=== PATIENT | female | born 1995 | race Caucasian/White ===

== ENCOUNTER 2016-11-01 19:05 | Emergency (ER) | payer BC ==
[~2016-11-01] VITALS: Ht 165.1 cm; Wt 88.4 kg
[2016-11-01 19:28] VITALS: Ht 165.1 cm; Wt 88.4 kg
[2016-11-01] MEDS ORDERED: ACETAMINOPHEN 500 MG TAB PO ONE (19:31)
[2016-11-01] MEDS ORDERED: KETOROLAC TROMETHAMINE 30 MG/ML VIAL IV STA (20:27)
[2016-11-01] MEDS ORDERED: SODIUM CHLORIDE 0.9% 1000ML 2,000 ML IV STA (20:27)
[2016-11-01] MEDS ORDERED: BCPILLS PO (20:30)
[2016-11-01 20:44] VITALS: TEMP 37.1
[2016-11-01] MEDS ORDERED: OPTIRAY 320 IV PRN (20:45)
[2016-11-01 20:46] LABS: BASO % 0.3 %; BASO ABS # 0.04 K/uL (0-0.2); COMPLETE YES; EOS % 0.9 %; HEMATOCRIT 40.5 % (37-47); IG% 0.3 %; LYMPH % 14.8 %; LYMPH ABS # 1.75 K/uL (1.2-3.4); MEAN CELL VOLUME 82.2 fL (80-100); MEAN CORPUSCULAR HGB CONC 34.1 g/dl (32-36); MEAN PLATELET VOLUME 9.1 fL (7.4-10.4); MONO % 7.7 %; PLATELET COUNT 281 K/uL (130-400); RED BLOOD COUNT 4.93 M/uL (4.2-5.4); WHITE BLOOD COUNT 11.82 K/uL (4.8-10.8)
[2016-11-01 21:04] LABS: URINE APPEARANCE CLEAR (CLEAR); URINE BILIRUBIN NEG (NEG); URINE COLOR YELLOW; URINE NITRITE NEG (NEG); URINE SPECIFIC GRAVITY 1.019 (1.000-1.030); UROBILINOGEN NEG (NEG); ZZUR CULT IF INDIC CLEAN CATCH NO
[2016-11-01 21:09] LABS: ALT/SGPT 15 U/L (12-78); AST/SGOT 17 U/L (15-37); BLOOD UREA NITROGEN 8 mg/dl (7-18); CALCIUM 8.5 mg/dl (8.5-10.1); CARBON DIOXIDE 25 mmol/L (21-32); CHLORIDE 105 mmol/L (98-107); CREATININE 0.84 mg/dl (0.60-1.20); GLUCOSE 91 mg/dl (70-99); POTASSIUM 3.6 mmol/L (3.5-5.1); SODIUM 140 mmol/L (136-145)
[2016-11-01 21:11] LABS: MANUAL MICROSCOPIC REQUIRED? NO; REVIEW REQ? NO
[2016-11-01 21:12] LABS: ISTAT CREATININE 0.8 mg/dl; ISTAT HEMOGLOBIN 13.3 g/dl (12.0-16.0); ISTAT IONIZED CALCIUM 0.99 mmol/l
[2016-11-01 21:12] LABS: ALKALINE PHOSPHATASE 145 U/L (45-117)
--- NOTE | 2016-11-01 21:18 | DIAGNOSTIC IMAGING REPORT ---
CT ABD/PELVIS IV CONTRAST ONLY CLINICAL HISTORY: Left lower flank pain COMPARISON STUDY: None. TECHNIQUE: Following the IV administration of 117 mL of Optiray-320, CT scan of the abdomen and pelvis was performed from the lung bases to the proximal femurs. Images are reviewed in the axial, sagittal, and coronal planes. IV contrast was administered without complication. CT DOSE: 548.96 mGy.cm FINDINGS: Lower chest: There is an airspace opacity within the right middle lobe, suspicious for a pneumonia. Clinical and imaging follow-up is recommended Liver: The contrast-enhanced liver is normal in size, contour, and attenuation. There is no intrahepatic biliary ductal dilatation. The hepatic veins and portal veins are patent. Gallbladder: Unremarkable. Spleen: Normal in size and attenuation. Pancreas: Unremarkable. Adrenal glands: Unremarkable. Kidneys: There is symmetric renal cortical enhancement. The kidneys are normal in size without hydronephrosis. Bowel: There are no transition zones indicate bowel obstruction. There are no findings to indicate acute diverticulitis. The appendix appears normal. Peritoneum: There is no free air. There is trace free pelvic fluid likely physiologic Vasculature: The abdominal aorta is normal in course and caliber. Adenopathy: There are prominent right-sided ileocolic lymph nodes, likely reactive. Pelvic viscera: The bladder, and pelvic viscera are unremarkable. Skeletal structures: There is bilateral L5 spondylolysis. There is a grade 1 spondylolisthesis of L5 on S1. IMPRESSION: 1. No evidence of bowel obstruction. No evidence of free air 2. Normal appendix 3. No evidence of acute diverticulitis 4. Right middle lobe airspace opacities. In a patient of this age, this likely represents a pneumonia. Clinical and imaging follow-up is recommended. Electronically signed by: Ricco Almaraz M.D. 11/01/2016 9:17 PM Dictated Date/Time: 11/01/2016 9:13 PM
--- NOTE | 2016-11-01 21:32 | DIAGNOSTIC IMAGING REPORT ---
CHEST 2 VIEWS ROUTINE CLINICAL HISTORY: cough and fever COMPARISON STUDY: No previous studies for comparison. FINDINGS: There are right middle lobe airspace opacities suspicious for a pneumonia. The heart is normal in size. There is no failure. There are no pleural effusions.[ IMPRESSION: Right middle lobe airspace opacities consistent with pneumonia. Films subsequent to treatment are recommended in follow-up. Electronically signed by: Ricco Almaraz M.D. 11/01/2016 9:30 PM Dictated Date/Time: 11/01/2016 9:30 PM
[2016-11-01] MEDS ORDERED: DOXYCYCLINE HYCLATE 100 MG CAP PO ONE (21:45)
[2016-11-01 23:05] VITALS: BP 146/84; PULSE 96; O2SAT 98
[2016-11-01] MEDS ORDERED: DOXY100C PO (23:11)
--- NOTE | 2016-11-01 23:40 | EMERGENCY ROOM VISIT NOTE ---
History Report prepared by Moriah: Daisy Monroy Under the Supervision of: Dr. Eulalio Almeida D.O. First contact with patient: 20:18 Chief Complaint: FLANK PAIN Stated Complaint: BACK PAIN, FEVER- [facility] REFERRED History of Present Illness The patient is a 21 year old female who presents to the Emergency Room with complaints of a constant illness beginning yesterday. The patient states that she started having headaches 1 week ago that are slightly worse than a normal headache but are better than her typical migraine. She reports that she started having chills 2 nights ago and yesterday she developed back pain, lower neck pain, abdominal pain, nausea, green productive cough, runny nose, and a fever. She notes that the back pain is on both sides and feels hot. The patient reports that her abdominal pain feels like period cramping and her muscles are sore. She states that she is supposed to get her period in 2 weeks. She denies any nausea, vomiting, chest pain, urinary symptoms, vaginal discharge, vaginal bleeding, and diarrhea. She notes that she still has her gallbladder and appendix and does a lot of heavy lifting at work. The patient states that nothing makes her pain better or worse. She notes the fevers did start within the past 24 hours when a cough and runny nose have been worsening. Source of History: patient Onset: yesterday Position: back Quality: other (hot) Timing: constant Modifying Factors (Worsening): other (none) Modifying Factors (Relieving): other (none) Associated Symptoms: + abdominal pain, + back pain, + chills, + cough, + fevers, + nausea, + neck pain, No chest pain, No diarrhea, No urinary symptoms, No vomiting Note: She denies any vaginal discharge, vaginal bleeding. Review of Systems See HPI for pertinent positives & negatives. A total of 10 systems reviewed and were otherwise negative. Past Medical & Surgical Medical Problems: (1) No Known Active Medical Problems Family History No pertinent family history stated. Social History Smoking Status: Never Smoker Marital Status: single Housing Status: lives with roommate Occupation Status: student, [employer] student Current/Historical Medications Scheduled Control Pills ( Control Pills), 1 TAB PO DAILY Doxycycline Hyclate (Vibramycin), 100 MG PO BID Allergies Coded Allergies: No Known Allergies (Unverified , 11/01/16) Physical Exam Vital Signs Date Time Temp Pulse Resp B/P Pulse Ox O2 Delivery O2 Flow Rate FiO2 11/01/16 23:05 96 18 146/84 98 Room Air 11/01/16 22:50 93 18 163/86 95 Room Air 11/01/16 21:39 102 21 156/97 97 Room Air 11/01/16 20:46 101 11/01/16 20:44 37.1 113 19 143/111 99 Room Air 11/01/16 19:28 37.9 121 20 175/114 96 Room Air Physical Exam GENERAL: alert, sitting up in bed, well appearing, well nourished, no distress, non-toxic EYE EXAM: normal conjunctiva, PERRL and EOM's grossly intact OROPHARYNX: no exudate, no erythema, lips, buccal mucosa, and tongue normal and mucous membranes are moist, faint posterior tonsillar exudates NECK: supple, no nuchal rigidity, no adenopathy, non-tender, negative Brudzinski EARS: TMs clear bilaterally LUNGS: Clear to auscultation. Normal chest wall mechanics HEART: no murmurs, S1 normal and S2 normal ABDOMEN: abdomen soft, non-tender, normo-active bowel sounds, no masses, no rebound or guarding. BACK: Back is symmetrical on inspection and there is no deformity. Acute reproducible lower lumbar paraspinal tenderness tracking into bilateral gluteus SKIN: no rashes and no bruising UPPER EXTREMITIES: upper extremities are grossly normal. LOWER EXTREMITIES: No pitting edema. NEURO EXAM: Normal sensorium, cranial nerves II-XII grossly intact, normal speech, no gross weakness of arms, no gross weakness of legs. Medical Decision & Procedures ER Provider Diagnostic Interpretation: Radiology results as stated below per my review and the radiologist's interpretation: CHEST 2 VIEWS ROUTINE FINDINGS: There are right middle lobe airspace opacities suspicious for a pneumonia. The heart is normal in size. There is no failure. There are no pleural effusions.[ IMPRESSION: Right middle lobe airspace opacities consistent with pneumonia. Films subsequent to treatment are recommended in follow-up. Electronically signed by: Ricco Almaraz M.D. 11/01/2016 9:30 PM Dictated Date/Time: 11/01/2016 9:[address] ABD/PELVIS IV CONTRAST ONLY FINDINGS: Lower chest: There is an airspace opacity within the right middle lobe, suspicious for a pneumonia. Clinical and imaging follow-up is recommended Liver: The contrast-enhanced liver is normal in size, contour, and attenuation. There is no intrahepatic biliary ductal dilatation. The hepatic veins and portal veins are patent. Gallbladder: Unremarkable. Spleen: Normal in size and attenuation. Pancreas: Unremarkable. Adrenal glands: Unremarkable. Kidneys: There is symmetric renal cortical enhancement. The kidneys are normal in size without hydronephrosis. Bowel: There are no transition zones indicate bowel obstruction. There are no findings to indicate acute diverticulitis. The appendix appears normal. Peritoneum: There is no free air. There is trace free pelvic fluid likely physiologic Vasculature: The abdominal aorta is normal in course and caliber. Adenopathy: There are prominent right-sided ileocolic lymph nodes, likely reactive. Pelvic viscera: The bladder, and pelvic viscera are unremarkable. Skeletal structures: There is bilateral L5 spondylolysis. There is a grade 1 spondylolisthesis of L5 on S1. IMPRESSION: 1. No evidence of bowel obstruction. No evidence of free air 2. Normal appendix 3. No evidence of acute diverticulitis 4. Right middle lobe airspace opacities. In a patient of this age, this likely represents a pneumonia. Clinical and imaging follow-up is recommended. Electronically signed by: Ricco Almaraz M.D. 11/01/2016 9:17 PM Dictated Date/Time: 11/01/2016 9:13 PM Laboratory Results 11/01/16 20:30 Red Blood Count 4.93, Mean Corpuscular Volume 82.2, Mean Corpuscular Hemoglobin 28.0, Mean Corpuscular Hemoglobin Concent 34.1, Mean Platelet Volume 9.1, Neutrophils (%) (Auto) 76.0, Lymphocytes (%) (Auto) 14.8, Monocytes (%) (Auto) 7.7, Eosinophils (%) (Auto) 0.9, Basophils (%) (Auto) 0.3, Neutrophils # (Auto) 8.97, Lymphocytes # (Auto) 1.75, Monocytes # (Auto) 0.91, Eosinophils # (Auto) 0.11, Basophils # (Auto) 0.04 11/01/16 20:30 Test 11/01/16 20:30 11/01/16 20:35 11/01/16 20:40 11/01/16 20:59 White Blood Count 11.82 K/uL (4.8-10.8) Red Blood Count 4.93 M/uL (4.2-5.4) Hemoglobin 13.8 g/dL (12.0-16.0) Hematocrit 40.5 % (37-47) Mean Corpuscular Volume 82.2 fL (80-100) Mean Corpuscular Hemoglobin 28.0 pg (25-34) Mean Corpuscular Hemoglobin Concent 34.1 g/dl (32-36) Platelet Count 281 K/uL (130-400) Mean Platelet Volume 9.1 fL (7.4-10.4) Neutrophils (%) (Auto) 76.0 % Lymphocytes (%) (Auto) 14.8 % Monocytes (%) (Auto) 7.7 % Eosinophils (%) (Auto) 0.9 % Basophils (%) (Auto) 0.3 % Neutrophils # (Auto) 8.97 K/uL (1.4-6.5) Lymphocytes # (Auto) 1.75 K/uL (1.2-3.4) Monocytes # (Auto) 0.91 K/uL (0.11-0.59) Eosinophils # (Auto) 0.11 K/uL (0-0.5) Basophils # (Auto) 0.04 K/uL (0-0.2) RDW Standard Deviation 37.7 fL (36.4-46.3) RDW Coefficient of Variation 12.5 % (11.5-14.5) Immature Granulocyte % (Auto) 0.3 % Immature Granulocyte # (Auto) 0.04 K/uL (0.00-0.02) Est Creatinine Clear Calc Drug Dose 117.3 ml/min Estimated GFR () 116.0 Estimated GFR (Non- 100.1 BUN/Creatinine Ratio 9.0 (10-20) Calcium Level 8.5 mg/dl (8.5-10.1) Total Bilirubin 0.3 mg/dl (0.2-1) Direct Bilirubin < 0.1 mg/dl (0-0.2) Aspartate Amino Transf (AST/SGOT) 17 U/L (15-37) Alanine Aminotransferase (ALT/SGPT) 15 U/L (12-78) Alkaline Phosphatase 145 U/L (45-117) Total Protein 8.0 gm/dl (6.4-8.2) Albumin 3.5 gm/dl (3.4-5.0) Lipase 98 U/L (73-393) Influenza Type A Antigen Neg for Influ A (NEG) Influenza Type B Antigen Neg for Influ B (NEG) Urine Color YELLOW Urine Appearance CLEAR (CLEAR) Urine pH 6.0 (4.5-7.5) Urine Specific [place] 1.019 (1.000-1.030) Urine Protein NEG (NEG) Urine Glucose (UA) NEG (NEG) Urine Ketones NEG (NEG) Urine Occult Blood NEG (NEG) Urine Nitrite NEG (NEG) Urine Bilirubin NEG (NEG) Urine Urobilinogen NEG (NEG) Urine Leukocyte Esterase NEG (NEG) Urine WBC (Auto) 1-5 /hpf (0-5) Urine RBC (Auto) 0-4 /hpf (0-4) Urine Hyaline Casts (Auto) 1-5 /lpf (0-5) Urine Epithelial Cells (Auto) 10-20 /lpf (0-5) Urine Bacteria (Auto) NEG (NEG) Urine Test NEG (NEG) Bedside Hemoglobin 13.3 g/dl (12.0-16.0) Bedside Hematocrit 39 % (37-47) Bedside Sodium 137 mEq/L (135-144) Bedside Potassium 3.3 mEq/L (3.3-5.0) Bedside Chloride 103 mEq/L (101-112) Bedside Total CO2 19 mEq/l (24-31) Anion Gap 20.0 mmol/L (16-25) Bedside Blood Urea Nitrogen 7 mg/dl (7-18) Bedside Creatinine 0.8 mg/dl Bedside Glucose (other) 93 mg/dl (70-99) Bedside Ionized Calcium (Yanely) 0.99 mmol/l Laboratory results per my review. Medications Administered Medications (Trade) Dose Ordered Sig/Chase Route Start Time Stop Time Status Last Admin Dose Admin Acetaminophen 1000 mg 1,000 mg STK-MED ONCE PO 11/01/16 19:31 11/01/16 19:32 DC 11/01/16 19:31 1,000 MG Sodium Chloride (Nss 1000ml) 2,000 ml @ 999 mls/hr Q2H1M STAT IV 11/01/16 20:27 11/01/16 22:27 DC 11/01/16 20:50 999 MLS/HR Ketorolac Tromethamine (Toradol Inj) 30 mg NOW STAT IV 11/01/16 20:27 11/01/16 20:29 DC 11/01/16 20:52 30 MG Doxycycline Hyclate (Vibramycin Cap) 100 mg ONE ONCE PO 11/01/16 21:45 11/01/16 21:46 DC 11/01/16 22:01 100 MG ED Course ED COURSE: Vital signs were reviewed and showed tachycardia, hypertension and febrile The patients medical record was reviewed The above diagnostic studies were performed and reviewed. ED treatments and interventions as stated above. 1930: Tylenol Tab 1000mg PO. 2017: The patient was evaluated in room A11. A complete history and physical examination was performed. 2026: Toradol Inj 30mg IV, Sodium Chloride 2000 ml @ 999 mls/hr IV. 2144: Vibramycin Cab 100mg PO. 2248: I reevaluated the patient and she is doing well. She is drinking Gatorade. 2314: I reevaluated the patient and updated her. 2331: Upon reevaluation, the patient is doing well.I discussed my findings with the patient and she understands and agrees with the treatment plan. Based on the patients age, coexisting illnesses, exam and lab findings the decision to treat as an outpatient was made. The patient remained stable while under my care. The patient appeared well at the time of discharge. Medical Decision Differential diagnosis includes etiologies such as sepsis, UTI, pneumonia, metabolic, electrolyte abnormalities, cardiac sources, intracerebral event, toxicologic, neurologic, as well as others were entertained. Medication Reconciliation: I attest that I have personally reviewed the patient' s current medication list. Blood pressure screening: Patient was found to have an elevated blood pressure and was referred to their primary doctor for recheck and further treatment. Patient is a 21-year-old female who presents the ER referred in by [facility] for a fever and tachycardia associated with multiple complaints. She notes that she has been having intermittent headaches over the past week. Over the past 24 hours she has been having a cough, runny nose and a sore throat. Fevers started today. She plans of lower back pain which is clearly reproducible on exam. No urinary complaints. UA was negative. was negative. Chest x-ray supports a right middle lobe pneumonia which is also improved turned on CT. CT of the abdomen and pelvis was benign as she is complaining of diffuse abdominal pain. Labs show a mild leukocytosis of 11, 000. BMP along with LFTs, bilirubin and lipase is negative. Patient received Tylenol, Toradol and 2 L normal saline. She is able to drink 2 Gatorade. Heart rate trended down into the 80s to 90s. She is given doxycycline discharged with pneumonia. She was instructed to follow-up with her primary care doctor/S within 24-48 hours. Discussed with Pt concerning signs and symptoms to watch out for. Pt was instructed to follow up with their PCP and discussed with the patient their option to return to the ED at anytime for persistent or worsening symptoms. The appropriate anticipatory guidance and out- patient management, including indications for return to the emergency department , were explained at length to the patient and understood. Impression Primary Impression: Pneumonia Scribe Attestation The scribe's documentation has been prepared under my direction and personally reviewed by me in its entirety. I confirm that the note above accurately reflects all work, treatment, procedures, and medical decision making performed by me. Departure Information Dispostion Home / Self-Care Prescriptions Doxycycline Hyclate (VIBRAMYCIN) 100 Mg Cap 100 MG PO BID for 10 Days, CAP Prov: Eulalio Almeida, DO 11/01/16 Referrals No Doctor, Assigned (PCP) Forms HOME CARE DOCUMENTATION FORM, IMPORTANT VISIT INFORMATION Patient Instructions My [facility], Pneumonia (Bacterial) - [facility] Additional Instructions Please follow up with your primary care doctor or if you are a student [facility] services with in the next 24 hours. Any worsening of your symptoms, please return to the ED immediately. This includes persistent fevers greater than 100.4 over the next 2 days, confusion, persistent nausea/vomiting, less than 3 urine outputs per day, or any other concerning signs or symptoms from your standpoint. Please take antibiotics as prescribed. Please take Motrin or Tylenol as needed for fevers. Problem Qualifiers Primary Impression: Pneumonia Pneumonia type: due to unspecified organism Laterality: unspecified laterality Lung location: unspecified part of lung Qualified Codes: J18.9 - Pneumonia, unspecified organism
== END 2016-11-01 23:49 | disposition home or self-care (01) ==
LOC: C.EDB 19:08 → C.EDA 23:49
DX: J18.9 Pneumonia, unspecified organism (principal); Z79.3 Long term (current) use of hormonal contraceptives

== ENCOUNTER → 2018-01-14 | Outpatient (CLI) | payer BC ==
[~2018-01-14] MED LIST: BCPILLS PO
--- NOTE | 2018-01-15 06:28 | PAP/PSG TECHNICIAN REPORT ---
[facility] Associate Professor Of History Polysomnogram Report Study name: None Report date: 01/15/2018 Study date: 01/14/2018 Referring Physician: Soco Bullard PA-C Name: ELDER CARIAS Interpreting Physician: Dioni Tian D.O. Date of : 1995 Associate Professor Of History: LIAN [place]. Sex: Female Age: 22 StudyType: PSG Weight: 201 lbs Height: 22 years, Height 5' 6" BMI: 32.44 Medications: Patient History PATIENT HAS HISTORY OF DAYTIME SLEEPINESS, SNORING AND WITNESSED APNEAS. SHE IS HERE TODAY FOR AN EVALUATION FOR KARINA. ESS = 12 RM 5 Parameters Monitored NPSG: E1-M2, E2-M1, Fp1-M2, Fp2-M1, F3-M2, F4-M2, F4-M1, C3-M2, C4-M2, C4-M1, O1-M2, O2-M2, O2-M1, T3-M2, T4-M1, P3-M2, P4-M1, CHIN1, CHIN2, HR, EKG, Legs, PFLOW, SNOR, FLOW, CFLOW, Tidal Volume, THOR, ABDO, SpO2, PLTH, CPRESS, ETCO2 Wave, ETCO2, pH Sleep Architecture Sleep Stages Time at Lights Off 10:25:10 PM STAGES Time (min.) TST (%) Time at Lights On 5:55:40 AM Wake 108.5 -- Total Recording Time (TRT) 451.00 min. N1 29.0 8 Total Sleep Period (TSP) 383.0 min. N2 170.0 50 Total Sleep Time (TST) 342.0min. N3 80.0 23 Awake Time 109.0 min. REM 63.0 18 Wake after Sleep Onset 42.5 min. Sleep Efficiency (SE) 76 % Sleep Onset Latency (KYLAH) 66.0 min. Number of Stage 1 Shifts None Awakenings 26 Stage Changes 86 Number of REM periods 3 REM 63.0 18 REM Latency 208.0 min. NREM 279.0 82 Body Position Analysis Supine Right Left Side Prone Vertical Total Sleep Time (min.) 64.7 63.5 194.7 258.27 84.0 0.0 Total Sleep Time (%) 3% 19% 57% 76 21% N/A% Total Sleep Time REM (min.) 0.0 0.0 63.0 None 0.0 0.0 Total Sleep Time NREM (min.) 10.6 63.5 131.7 None 73.1 0.0 Intermittent Wake (min.) 54.1 22.1 21.4 None 10.9 0.0 Total Sleep Period (%) 5% None None None None None Arousals Myoclonus (PLM) * Events Count Index Events Count Index Spontaneous 27 5 Events Awake (PLMW) 95 52.5 Respiratory 7 1.4 Events Asleep w/ Arousal (PLMA) 0 0.0 PLM 0 0 Events Asleep w/o Arousal (PLMS) 18 3.2 Snoring 4 1 Total Asleep 18 3.2 Total 37 6 Total 113 15 Respiratory Analysis * CA OA MA CH H RERA Total Count 0 0 0 0 24 1 24 Index 0.0 0.0 0.0 0 4.2 0 4.4 Mean Duration 0.0 0.0 0.0 0.00 22.7 17.2 22.5 Longest Duration 0.0 0.0 0.0 0.00 0.0 17.2 54.1 Respiratory Event Summary Total Supine ~Supine Right Left Prone REM NREM Apneas Count 0 0 0 0 0 0 0 0 Index 0.0 0 0 0.0 0.0 0 0 0 Hypopneas (4% Desat) Count 24 4 20 3 17 0 10 14 Index 4.2 22.6 4 2.8 5.2 0.0 9.5 3.0 Apneas & All Hypopneas Count 24 4 20 3 17 0 10 14 Index 4.2 23 4 3 5 0 9.5 3.0 Respiratory Events (Fresh Food Manager+All Hyp+RERA) Count 24 4 21 4 17 0 10 14 Index 4.4 23 4 3.8 5.2 0.0 9.5 3.2 Respiratory Related Arousal Count 7 4 7 3 4 0 0 8 Index 1.4 6 1 3 1 0 0 2 Snoring Analysis Supine Right Left Prone REM NREM Total Snore duration 2.0 min Snores count 1 3 33 4 1 40 41 Snore mean duration 3.0 Sec Snores index 6 3 10 3 1.0 8.6 7.2 TST with snoring (%) 0.6% Desaturation Event Summary: Minimum %SpO2 Event Count Mean/Min/Max Duration(sec.) Desaturation Index % Time In Bed > 90 35 31.7 / 11.0 / 60.0 4.7 99.9 86 - 90 0 N/A 0.0 0.1 81 - 85 0 N/A 0.0 0.0 76 - 80 0 N/A 0.0 0.0 71 - 75 0 N/A 0.0 0.0 66 - 70 0 N/A 0.0 0.0 61 - 65 0 N/A 0.0 0.0 56 - 60 0 N/A 0.0 0.0 51 - 55 0 N/A 0.0 0.0 < 50 0 N/A 0.0 0.0 Total REM NREM Awake <50% 0.0 min. 0.0 min. 0.0 min. 0.0 min. 51 - 60% 0.0 min. 0.0 min. 0.0 min. 0.0 min. 61 - 70% 0.0 min. 0.0 min. 0.0 min. 0.0 min. 71 - 80% 0.0 min. 0.0 min. 0.0 min. 0.0 min. 81 - 90% 0.4 min. 0.0 min. 0.3 min. 0.1 min. 91 - 100% 448.9 min. 63.0 min. 278.5 min. 107.4 min. Average 95 96 95 95 Minimum SpO2 88 92 90 88 Desaturation Event Index 4.7 9.5 2.8 7.2 # Desat. Events below 89% 1 N/A N/A 1 Time(%) with Saturation below 89% 0.0 0.0 0.0 0.0 Time(min.) with Saturation below 89% 0.0 0.0 0.0 0.0 Time (mins) REM (mins) NREM (mins) % of TST SpO2 Below 90% 1 N/A N1 0.0 SpO2 Below 88% 0 0 0 0 Heart Rate Analysis Min (bpm) Max (bpm) Average (bpm) Awake 48 127 74 NREM 49 102 65 REM 47 79 65 Overall 47 102 65 Supplemental O2 Values Minimum O2 level: None Value Start Time End Time Associate Professor Of History Comments Ms. Carias slept in the right, left, supine and prone positions. No cardiac arrhythmia noted. Leg movements noted. No bruxism noted. Snoring was noted and scored as a 1 on a scale of 1 through 5. (0=no snoring, 5=snoring loud enough to be heard through a closed door or down the de [address] way) Ms. Carias awoke to use the restroom 0 time during the night. Ms. Carias stated I did not sleep as well as I do when I am in my own bed. The final report will be interpreted and signed by a sleep physician. The completed physician report will then be placed in the patient medical record. Therapy (cm H2O) 0 TIB (min.) 450.5 TST (min.) 342.0 Sleep Onset (min.) 66.0 REM Onset From Sleep (min.) 208.0 Sleep Efficiency % 76 Wakefulness (%) 24 Wakefulness (min.) 109.0 NREM 1 (%) 8 NREM 1 (min.) 29.0 NREM 2 (%) 50 NREM 2 (min.) 170.0 NREM 3 (%) 23 NREM 3 (min.) 80.0 REM (%) 18 REM (min.) 63.0 # Arousals 37 Arousal Index 6 # Snore 41 Snore Index 7.2 AHI 4.2 AHI Supine 23 AHI Non-Supine 4 NREM AHI 3.0 REM AHI 9.5 RDI 4.4 # Obstructive Apnea 0 # Central Apnea 0 # Mixed Apnea 0 # Hypopneas 24 RERAs 1 Total Respiratory Events 26 Time Below SpO2 89% (min.) 0.0 Mean NREM SpO2 (%) 95 Mean REM SpO2 (%) 96 Mean Sleep SpO2 (%) 95 Min NREM SpO2 (%) 90 Min REM SpO2 (%) 92 Position Supine (min.) 64.7 Position Non-supine (min.) 331.4 LM Index Sleep 3.2 LM Index NREM 3.9 LM Index REM 0.0 Mean Heart Rate (bpm) 65 Min Heart Rate (bpm) 47
--- NOTE | 2018-01-15 21:22 | POLYSOMNOGRAPH REPORT ---
CLINICAL DATA: The patient is a 22-year-old female who has a history of snoring and observed apneas. She has an Parrish sleepiness scale score of 12. Both of her parents have obstructive sleep apnea. She is referred by Soco Bullard PA-C, for a sleep study, which was done in the sleep laboratory. SLEEP ARCHITECTURE: The total sleep period was 383 minutes. The total sleep time was 342 minutes. The sleep efficiency was moderately reduced to 76%. The sleep latency was prolonged to 66 minutes. Wake after sleep onset was increased to 42.5 minutes. The REM latency was prolonged to 208 minutes. There were 2 REM periods during the night. Sleep consisted of stage N1 of 8%, stage N2 of 50%, stage N3 of 23%, stage REM 18%. AROUSAL DATA: The patient had a total of 37 arousals including 27 spontaneous, 7 respiratory, and 4 snoring arousals. The arousal index was 6. PLM DATA: The patient had a total of 18 periodic limb movements of sleep for a PLM index of 3.2. There were zero arousals associated with limb movements. EKG: The minimum heart rate was 47 beats per minute. The average heart rate was 65 beats per minute. RESPIRATORY DATA: The patient had a total of 24 respiratory events, all hypopneas. Hypopneas were scored according to the 4% desaturation rule. The mean duration of the hypopneas was 22.7 seconds. There was 1 RERA. The apnea-hypopnea index is 4.2 events per hour. This reflects no significant sleep apnea. OXIMETRY DATA: The average saturation for the night was 95%. The minimum saturation was 88% and this was very transient. The time with saturations below 89% was 0. PROGRAM AIDE GROUP WORK COMMENTS: Ms. Cook slept in the right, left, supine, and prone positions. No cardiac arrhythmia noted. Leg movements noted. No bruxism noted. Snoring was noted and scored as a 1 on a scale of 1 through 5. Ms. Cook awoke to use the restroom zero times during the night. She stated she did not sleep as well as she does in her own bed. IMPRESSION: 1. No significant sleep apnea. 2. Primary snoring. COMMENTS: The patient had relatively mild snoring. She had very few respiratory events with an apnea-hypopnea index within the limits of normal. She had marked difficulty initiating sleep. Oxygenation was normal. There were no significant limb movement abnormalities. RECOMMENDATIONS: 1. The patient should be advised of the appropriate principles of sleep hygiene including having a regular sleep-wake schedule and allowing approximately 8 hours of sleep time per night. 2. Weight loss is advised in light of the elevation of body mass index of 32.44. 3. If possible, the patient should avoid sleeping in the supine position. Typically, there is less snoring and respiratory events while supine.
== END | disposition home or self-care (01) ==
LOC: C.NEUR 21:00
PROVIDERS: ATTEND Physician Assistant
DX: R06.83 Snoring (principal)